=== PATIENT | female | born 1995 | race Caucasian/White ===

== ENCOUNTER 2021-08-17 10:28 | Emergency (ER) | payer MEDICAID ==
[~2021-08-17] VITALS: Ht 162.6 cm; Wt 52.0 kg
[2021-08-17 11:29] LABS: BASOPHILS % 0.3 % (0.0-2.0); EOSINOPHILS % 1.5 % (0.0-5.0); HEMATOCRIT. 36.2 % (36.0-48.0); HEMOGLOBIN. 12.3 g/dL (12.0-16.0); MEAN CORPUSCULAR HEMOGLOBIN 27.6 pg (28.0-32.0); MEAN CORPUSCULAR VOLUME 81.4 fL (81.0-99.0); MEAN PLATELET VOLUME 8.2 fl (7.4-10.4); MONOCYTES % 6.3 % (2.0-8.0); NEUTROPHILS % 77.9 % (40.0-76.0); PLATELET 283 x1000/uL (130-400); RED BLOOD CELL COUNT 4.44 mill/uL (4.2-5.4); RED CELL DISTRIBUTION WIDTH 13.1 % (11.6-14.6)
[2021-08-17 11:35] VITALS: BP 97/51
[2021-08-17 11:35] LABS: CHLORIDE 106 mEq/L (98-107)
[2021-08-17 12:05] LABS: HCG SCREEN NEGATIVE
== END 2021-08-17 15:02 | disposition home or self-care (01) ==
LOC: ER 10:45
DX: R55 Syncope and collapse (principal)
CPT/HCPCS: 36415; 70450; 71045; 80053; 83880; 84484; 84703; 85025; 93005; 99285; J7040